=== PATIENT | female | born 1955 | race Caucasian/White ===

== ENCOUNTER 2018-05-09 09:02 | Day surgery (SDC) | payer OTHER ==
[~2018-05-09 09:02] MED LIST: Propofol 200 MG/20 ML SDV ONE
[2018-05-09] MEDS ORDERED: Sodium Chloride 0.9% 10 ML Syringe FLUSH PRN (09:15)
[2018-05-09] MEDS ORDERED: Lactated Ringers 1,000 ML IV SCH (09:15)
[2018-05-09] MEDS ORDERED: Propofol 200 MG/20 ML SDV ONE (10:44)
--- NOTE | 2018-05-09 11:09 | PCM.HPR ---
H & P Addendum review - H & P Addendum Review Date of Original H & P: 05/01/18 Date Reviewed: 05/09/18 Time Reviewed: 10:30 Patient was Examined: No Changes
--- NOTE | 2018-05-09 11:10 | PCM.OPNOTE ---
- General Post-Op/Procedure Note Date of Surgery/Procedure: 05/09/18 Operative Procedure(s): Colonoscopy with polypectomy Findings: Upper rectal polyp at 12 cm Sig tics Pre Op Diagnosis: Heme pos Primary Surgeon: Mario Frey Anesthesia Provider: Abigail Davila EBL in mLs: 0 Complications: None Condition: Good
--- NOTE | 2018-05-09 13:20 | OR ---
Date of Procedure: 05/09/2018 PREOPERATIVE DIAGNOSIS: Hemoccult-positive stool. POSTOPERATIVE DIAGNOSES: 1. Upper rectal polyp. 2. Sigmoid diverticulosis. PROCEDURE: Colonoscopy with polypectomy. ANESTHESIA: IV sedation. DESCRIPTION OF PROCEDURE: The patient was brought to the procedure room, where she was placed on her left side and IV sedation administered. Digital rectal exam was performed which was normal. Colonoscope was inserted and advanced to the level of the cecum without difficulty. Cecal position was confirmed by identifying the appendiceal lumen and ileocecal valve. Prep was good and surfaces were well visualized. Upon withdrawing the scope, the ascending, transverse, and descending colon were normal in appearance. Sigmoid colon had multiple diverticula present. In the upper rectum, at 12 cm, was an 8-mm pedunculated polyp, removed with a cautery snare and retrieved in the polyp trap and sent for Pathology review. Retroflexion was normal. Air was removed and the scope withdrawn. The patient tolerated the procedure well and returned to recovery in stable condition. The patient will follow up with ABAD Neri, next week for review of Pathology report. The polyp was obviously adenomatous and would recommend that she undergo a repeat colonoscopy again in 3 years. ANA CRISTINA MCCABE MD /[id number]
[2018-05-09 14:58] VITALS: BP 134/87
== END 2018-05-09 12:40 | disposition home or self-care (01) ==
LOC: LL.SDS 09:02
PROVIDERS: ATTEND Surgery
DX: R19.5 Other fecal abnormalities (principal); D12.8 Benign neoplasm of rectum; K57.30 Diverticulosis of large intestine without perforation or abscess without bleeding; I10 Essential (primary) hypertension; E78.5 Hyperlipidemia, unspecified; Z79.899 Other long term (current) drug therapy
CPT/HCPCS: 00811; J2704; J7120

== ENCOUNTER 2024-09-14 20:00 | Emergency (ER) | payer MEDICARE, MEDICAID ==
[2024-09-14] MEDS ORDERED: EPINEPHrine 1:10,000 1 MG/10 ML Syringe IVPUSH ONE ×8 (20:24→21:25)
[2024-09-14] MEDS ORDERED: Lactated Ringers 1,000 ML IV ONE (20:40)
[2024-09-14] MEDS ORDERED: Lactated Ringers 1,000 ML IV SCH (21:01)
[2024-09-14] MEDS ORDERED: Norepinephrine Bit/D5W Premix 250 ML IV SCH (21:15)
[2024-09-14 21:45] LABS: O2 DELIVERY DEVICE AEROSOL MASK
[2024-09-14 21:46] LABS: BASE EXCESS VENOUS -15 mmol/L ((-2)-3); BICARBONATE,VENOUS 15 mmol/L (23-28); O2 SATURATION VENOUS 88 %; PCO2 VENOUS 47 mmHG (41-51); PO2 VENOUS 73 mmHG
[2024-09-14 21:49] LABS: BASOPHILS ABSOLUTE AUTO 0.04 K/uL (0.00-0.20); BASOPHILS PERCENT AUTO 0.3 % (0.0-2.0); EOSINOPHILS ABSOLUTE AUTO 0.19 K/uL (0.00-0.50); EOSINOPHILS PERCENT AUTO 1.5 % (0.0-5.0); HEMATOCRIT 44.1 % (34.0-46.0); IMMATURE GRAN ABSOLUTE AUTO 0.05 10^3/uL (0.00-0.04); IMMATURE GRAN PERCENT AUTO 0.4 % (0.0-0.4); LYMPHOCYTES ABSOLUTE AUTO 4.71 K/uL (0.50-3.50); LYMPHOCYTES PERCENT AUTO 36.4 % (10.0-50.0); MEAN CORPUSCULAR HEMOGLOBIN 29.9 pg (28.2-33.3); MEAN CORPUSCULAR HGB CONC 31.7 g/dL (31.7-36.0); MEAN CORPUSCULAR VOLUME 94.2 fL (84.0-98.0); MONOCYTES ABSOLUTE AUTO 0.65 K/uL (0.00-1.00); NEUTROPHILS PERCENT AUTO 56.4 % (45.0-80.0); PLATELET COUNT,PLT 289 K/uL (150-350); RED BLOOD CELL COUNT 4.68 M/uL (3.77-5.09); RED CELL DISTRIBUTION WIDTH 13.2 % (11.2-14.1); WHITE BLOOD CELL COUNT,WBC 12.9 K/uL (4.0-10.2)
[2024-09-14 21:50] LABS: ALANINE AMINOTRANSFERASE,ALT 33 U/L (12-78); ALBUMIN 3.3 g/dL (3.4-5.0); ALKALINE PHOSPHATASE 95 IU/L (46-116); ANION GAP 19.6 meq/L (7-15); ASPARTATE AMNIOTRANSFERASE,AST 36 U/L (15-37); BILIRUBIN TOTAL 0.5 mg/dL (0.2-1.0); BLOOD UREA NITROGEN,BUN 18 mg/dL (7-18); CALCIUM 9.3 mg/dL (8.5-10.1); CARBON DIOXIDE,CO2 20.7 mmol/L (21.0-32.0); CHLORIDE,CL 105 mmol/L (98-107); ESTIMATED GFR 40 mL/min (>=60); GLUCOSE RANDOM 280 mg/dL (70-99); MAGNESIUM 2.4 mg/dL (1.8-2.4); POTASSIUM,K 4.3 mmol/L (3.5-5.1); PRO B-TYPE NATRIUR PEPT,BNPPRO 865 pg/mL (0-125); PROTEIN TOTAL,TP 6.8 g/dL (6.4-8.2); SODIUM,NA 141 mmol/L (136-145)
[2024-09-14 21:51] LABS: INR 1.1 (0.9-1.1); PROTHROMBIN TIME 11.1 SEC (9.0-11.1)
== END 2024-09-14 23:35 | disposition expired ==
LOC: LL.ED 20:00
DX: I46.9 Cardiac arrest, cause unspecified (principal); I10 Essential (primary) hypertension; E78.00 Pure hypercholesterolemia, unspecified; E66.9 Obesity, unspecified; Z79.899 Other long term (current) drug therapy; Z90.710 Acquired absence of both cervix and uterus
CPT/HCPCS: 31500; 36415; 36680; 71045; 80053; 82803; 83605; 83735; 83880; 84484; 85025; 85610; 92950; 93005; 93010; 96365; 99284; 99291-25; 99292; J0171; J7120